=== PATIENT | male | born 1960 | race Caucasian/White ===

== ENCOUNTER 2017-12-02 17:27 | Inpatient (IN) | payer OTHER ==
[~2017-12-02 17:27] MED LIST: INSULIN HUMAN REGULAR 100 UNIT in SOD CHLORIDE 0.9% 99 ML IV; PHENYLEPHRINE IV; SOD CHLORIDE 0.9% IV
[2017-12-02] MEDS ORDERED: NACL 0.9% 3 ML SYG IV (20:00)
[2017-12-02] MEDS: INSULIN ASPART [NOVOLOG] 3 ML PEN SC (21:00)
[2017-12-02] MEDS ORDERED: GLUCOSE GEL 15 GRAM TUBE BUCCAL (23:00)
[2017-12-02] MEDS: HEPARIN 5,000 UNIT/0.5 ML VIAL SC (23:00)
[2017-12-02] MEDS ORDERED: GLUCAGON 1 MG INJ IM (23:00)
[2017-12-02] MEDS ORDERED: GLUCOSE GEL 15 GRAM TUBE PO ×2 (23:00)
[2017-12-02] MEDS ORDERED: DEXTROSE 50% 50 ML SYRINGE IV ×2 (23:00)
[2017-12-02] MEDS: ATORVASTATIN 80 MG TAB PO (23:07)
[2017-12-02] MEDS: GABAPENTIN 300 MG CAP PO (23:07)
[2017-12-03 05:52] LABS: ADD MAN DIFF? NO
[2017-12-03 06:01] LABS: WHITE BLOOD COUNT 6.1 10^3/ul (4.8-10.8)
[2017-12-03 06:01] LABS: BASOPHIL # 0.1 10^3/ul (0.0-0.1); BASOPHILS % 1.3 % (0.0-2.0); EOSINOPHILS # 0.2 10^3/ul (0.0-0.5); EOSINOPHILS % 2.8 % (0.0-7.0); HEMATOCRIT 31.4 % (42.0-52.0); HEMOGLOBIN 10.4 g/dl (14.0-18.0); LYMPHOCYTES # 1.5 10^3/ul (0.8-2.9); MEAN CORPUSCULAR HEMOGLOBIN 28.6 pg (29.0-33.0); MEAN CORPUSCULAR HGB CONC 33.1 g/dl (32.0-37.0); MEAN CORPUSCULAR VOLUME 86.3 fl (82.0-101.0); MEAN PLATELET VOLUME 12.9 fl (7.4-10.4); MONOCYTE # 0.5 10^3/ul (0.3-0.9); MONOCYTES % 7.8 % (0.0-11.0); NEUTROPHIL # 3.8 10^3/ul (1.6-7.5); NEUTROPHILS % 62.4 % (39.0-77.0); PLATELET COUNT 155 10^3/UL (140-415); RED BLOOD COUNT 3.64 10^6/ul (4.70-6.10); RED CELL DISTRIBUTION WIDTH 13.6 % (11.5-14.5)
[2017-12-03 06:57] LABS: ALANINE AMINOTRANSFERASE 43 IU/L (13-69); ALBUMIN 3.5 g/dl (3.3-4.9); ALKALINE PHOSPHATASE 93 IU/L (42-121); ANION GAP 15 (8-16); ASPARTATE AMINO TRANSFERASE 19 IU/L (15-46); BILIRUBIN,INDIRECT 0.4 mg/dl (0-1.1); BILIRUBIN,TOTAL 0.4 mg/dl (0.2-1.3); BLOOD UREA NITROGEN 31 mg/dl (7-20); CALCIUM 8.8 mg/dl (8.4-10.2); CARBON DIOXIDE 28 mmol/L (21-31); CHLORIDE 101 mmol/L (97-110); CREATININE 1.01 mg/dl (0.61-1.24); GLUCOSE 99 mg/dl (70-220); POTASSIUM 4.8 mmol/L (3.5-5.1); SODIUM 139 mmol/L (135-144); TOTAL PROTEIN 6.4 g/dl (6.1-8.1)
[2017-12-03] MEDS: INSULIN ASPART [NOVOLOG] 3 ML PEN SC ×4 (08:15→20:47)
[2017-12-03] MEDS: ASPIRIN 81 MG TAB PO (08:55)
[2017-12-03] MEDS: GABAPENTIN 300 MG CAP PO ×3 (08:55→20:46)
[2017-12-03] MEDS: BENAZEPRIL 5 MG TAB PO (08:56)
[2017-12-03] MEDS: FUROSEMIDE 40 MG TAB PO (08:56)
[2017-12-03] MEDS: HEPARIN 5,000 UNIT/0.5 ML VIAL SC ×2 (08:59→20:48)
[2017-12-03] MEDS: ATORVASTATIN 80 MG TAB PO (20:46)
[2017-12-04] MEDS: SOD CHLORIDE 0.9% 250 ML IV (03:18)
[2017-12-04] MEDS: MIDODRINE 5 MG TAB PO (03:30)
[2017-12-04] MEDS: INSULIN ASPART [NOVOLOG] 3 ML PEN SC ×4 (08:15→21:00)
[2017-12-04] MEDS: BENAZEPRIL 5 MG TAB PO (09:00)
[2017-12-04] MEDS: ASPIRIN 81 MG TAB PO (09:03)
[2017-12-04] MEDS: FUROSEMIDE 40 MG TAB PO (09:04)
[2017-12-04] MEDS: GABAPENTIN 300 MG CAP PO ×3 (09:05→20:54)
[2017-12-04] MEDS: HEPARIN 5,000 UNIT/0.5 ML VIAL SC ×2 (09:09→20:59)
[2017-12-04] MEDS: ATORVASTATIN 80 MG TAB PO (20:53)
[2017-12-05] MEDS: INSULIN ASPART [NOVOLOG] 3 ML PEN SC ×4 (08:02→21:00)
[2017-12-05] MEDS: GABAPENTIN 300 MG CAP PO ×3 (08:56→20:58)
[2017-12-05] MEDS: ASPIRIN 81 MG TAB PO (08:57)
[2017-12-05] MEDS: FUROSEMIDE 20 MG TAB PO (08:57)
[2017-12-05] MEDS: HEPARIN 5,000 UNIT/0.5 ML VIAL SC ×2 (09:00→21:00)
[2017-12-05] MEDS: BENAZEPRIL 5 MG TAB PO (09:00)
[2017-12-05 12:42] LABS: ADD MAN DIFF? NO
[2017-12-05 12:46] LABS: BASOPHIL # 0.1 10^3/ul (0.0-0.1); EOSINOPHILS # 0.2 10^3/ul (0.0-0.5); EOSINOPHILS % 3.5 % (0.0-7.0); HEMATOCRIT 35.6 % (42.0-52.0); HEMOGLOBIN 12.2 g/dl (14.0-18.0); LYMPHOCYTES # 1.4 10^3/ul (0.8-2.9); LYMPHOCYTES % 22.2 % (15.0-51.0); MEAN CORPUSCULAR HEMOGLOBIN 29.3 pg (29.0-33.0); MEAN CORPUSCULAR HGB CONC 34.3 g/dl (32.0-37.0); MEAN CORPUSCULAR VOLUME 85.4 fl (82.0-101.0); MONOCYTE # 0.6 10^3/ul (0.3-0.9); MONOCYTES % 9.9 % (0.0-11.0); NEUTROPHIL # 3.8 10^3/ul (1.6-7.5); NEUTROPHILS % 63.1 % (39.0-77.0); PLATELET COUNT 190 10^3/UL (140-415); RED BLOOD COUNT 4.17 10^6/ul (4.70-6.10); RED CELL DISTRIBUTION WIDTH 13.7 % (11.5-14.5)
[2017-12-05 12:46] LABS: WHITE BLOOD COUNT 6.1 10^3/ul (4.8-10.8)
[2017-12-05 13:08] LABS: ANION GAP 14 (8-16); BLOOD UREA NITROGEN 37 mg/dl (7-20); CALCIUM 9.2 mg/dl (8.4-10.2); CARBON DIOXIDE 30 mmol/L (21-31); CHLORIDE 101 mmol/L (97-110); CREATININE 1.14 mg/dl (0.61-1.24); GLUCOSE 107 mg/dl (70-220); POTASSIUM 4.7 mmol/L (3.5-5.1); SODIUM 140 mmol/L (135-144)
[2017-12-05] MEDS: ATORVASTATIN 80 MG TAB PO (20:58)
[2017-12-06] MEDS: INSULIN ASPART [NOVOLOG] 3 ML PEN SC ×4 (08:15→20:11)
[2017-12-06] MEDS: FUROSEMIDE 20 MG TAB PO (08:20)
[2017-12-06] MEDS: GABAPENTIN 300 MG CAP PO ×3 (08:20→20:10)
[2017-12-06] MEDS: ASPIRIN 81 MG TAB PO (08:20)
[2017-12-06] MEDS: BENAZEPRIL 5 MG TAB PO (08:28)
[2017-12-06] MEDS: HEPARIN 5,000 UNIT/0.5 ML VIAL SC ×2 (12:17→21:00)
[2017-12-06 14:35] LABS: ADD MAN DIFF? NO
[2017-12-06 14:38] LABS: WHITE BLOOD COUNT 6.9 10^3/ul (4.8-10.8)
[2017-12-06 14:38] LABS: BASOPHIL # 0.1 10^3/ul (0.0-0.1); BASOPHILS % 0.9 % (0.0-2.0); EOSINOPHILS # 0.3 10^3/ul (0.0-0.5); EOSINOPHILS % 4.2 % (0.0-7.0); HEMATOCRIT 36.4 % (42.0-52.0); HEMOGLOBIN 12.5 g/dl (14.0-18.0); LYMPHOCYTES # 1.4 10^3/ul (0.8-2.9); LYMPHOCYTES % 20.3 % (15.0-51.0); MEAN CORPUSCULAR HEMOGLOBIN 29.3 pg (29.0-33.0); MEAN CORPUSCULAR HGB CONC 34.3 g/dl (32.0-37.0); MEAN CORPUSCULAR VOLUME 85.2 fl (82.0-101.0); MEAN PLATELET VOLUME 12.6 fl (7.4-10.4); MONOCYTE # 0.6 10^3/ul (0.3-0.9); MONOCYTES % 8.3 % (0.0-11.0); NEUTROPHIL # 4.6 10^3/ul (1.6-7.5); PLATELET COUNT 193 10^3/UL (140-415); RED BLOOD COUNT 4.27 10^6/ul (4.70-6.10); RED CELL DISTRIBUTION WIDTH 13.7 % (11.5-14.5)
[2017-12-06 14:57] LABS: ALANINE AMINOTRANSFERASE 35 IU/L (13-69); ALBUMIN 3.8 g/dl (3.3-4.9); ALBUMIN/GLOBULIN RATIO 1.26; ALKALINE PHOSPHATASE 131 IU/L (42-121); ANION GAP 15 (8-16); ASPARTATE AMINO TRANSFERASE 13 IU/L (15-46); BILIRUBIN,INDIRECT 0.1 mg/dl (0-1.1); BILIRUBIN,TOTAL 0.1 mg/dl (0.2-1.3); BLOOD UREA NITROGEN 42 mg/dl (7-20); CALCIUM 8.8 mg/dl (8.4-10.2); CARBON DIOXIDE 27 mmol/L (21-31); CHLORIDE 99 mmol/L (97-110); CREATININE 1.13 mg/dl (0.61-1.24); GLUCOSE 121 mg/dl (70-220); POTASSIUM 4.2 mmol/L (3.5-5.1); SODIUM 137 mmol/L (135-144); TOTAL PROTEIN 6.8 g/dl (6.1-8.1)
[2017-12-06] MEDS: ATORVASTATIN 80 MG TAB PO (20:10)
[2017-12-07] MEDS: INSULIN ASPART [NOVOLOG] 3 ML PEN SC ×4 (08:15→20:33)
[2017-12-07] MEDS: HEPARIN 5,000 UNIT/0.5 ML VIAL SC ×2 (09:00→20:31)
[2017-12-07] MEDS: BENAZEPRIL 5 MG TAB PO (09:00)
[2017-12-07] MEDS: ASPIRIN 81 MG TAB PO (10:37)
[2017-12-07] MEDS: GABAPENTIN 300 MG CAP PO ×3 (10:37→20:32)
[2017-12-07] MEDS: FUROSEMIDE 20 MG TAB PO (10:38)
[2017-12-07] MEDS: ATORVASTATIN 80 MG TAB PO (20:32)
[2017-12-08] MEDS: INSULIN ASPART [NOVOLOG] 3 ML PEN SC ×4 (07:54→20:34)
[2017-12-08] MEDS: BENAZEPRIL 5 MG TAB PO (08:27)
[2017-12-08] MEDS: GABAPENTIN 300 MG CAP PO ×3 (08:27→20:31)
[2017-12-08] MEDS: ASPIRIN 81 MG TAB PO (08:28)
[2017-12-08] MEDS: FUROSEMIDE 20 MG TAB PO (08:29)
[2017-12-08] MEDS: HEPARIN 5,000 UNIT/0.5 ML VIAL SC ×2 (09:00→20:34)
[2017-12-08 19:29] LABS: ADD MAN DIFF? NO
[2017-12-08 19:32] LABS: BASOPHIL # 0.1 10^3/ul (0.0-0.1); BASOPHILS % 1.2 % (0.0-2.0); EOSINOPHILS # 0.3 10^3/ul (0.0-0.5); EOSINOPHILS % 3.7 % (0.0-7.0); HEMATOCRIT 39.2 % (42.0-52.0); HEMOGLOBIN 13.3 g/dl (14.0-18.0); LYMPHOCYTES # 1.4 10^3/ul (0.8-2.9); LYMPHOCYTES % 19.3 % (15.0-51.0); MEAN CORPUSCULAR HEMOGLOBIN 29.1 pg (29.0-33.0); MEAN CORPUSCULAR HGB CONC 33.9 g/dl (32.0-37.0); MEAN CORPUSCULAR VOLUME 85.8 fl (82.0-101.0); MEAN PLATELET VOLUME 12.3 fl (7.4-10.4); MONOCYTE # 0.5 10^3/ul (0.3-0.9); MONOCYTES % 7.2 % (0.0-11.0); NEUTROPHILS % 68.3 % (39.0-77.0); PLATELET COUNT 217 10^3/UL (140-415); RED BLOOD COUNT 4.57 10^6/ul (4.70-6.10); RED CELL DISTRIBUTION WIDTH 13.8 % (11.5-14.5)
[2017-12-08 19:32] LABS: WHITE BLOOD COUNT 7.3 10^3/ul (4.8-10.8)
[2017-12-08 20:25] LABS: ANION GAP 17 (8-16); BLOOD UREA NITROGEN 41 mg/dl (7-20); CALCIUM 9.3 mg/dl (8.4-10.2); CARBON DIOXIDE 25 mmol/L (21-31); CHLORIDE 101 mmol/L (97-110); GLUCOSE 119 mg/dl (70-220); MAGNESIUM 1.9 mg/dl (1.7-2.5); PHOSPHORUS 4.2 mg/dl (2.5-4.9); POTASSIUM 4.3 mmol/L (3.5-5.1); SODIUM 139 mmol/L (135-144)
[2017-12-08] MEDS: ATORVASTATIN 80 MG TAB PO (20:31)
[2017-12-09] MEDS: FUROSEMIDE 20 MG TAB PO (08:00)
[2017-12-09] MEDS: GABAPENTIN 300 MG CAP PO ×3 (08:00→21:02)
[2017-12-09] MEDS: ASPIRIN 81 MG TAB PO (08:00)
[2017-12-09] MEDS: INSULIN ASPART [NOVOLOG] 3 ML PEN SC ×4 (08:15→21:00)
[2017-12-09] MEDS: BENAZEPRIL 5 MG TAB PO (09:00)
[2017-12-09] MEDS: HEPARIN 5,000 UNIT/0.5 ML VIAL SC ×2 (09:00→21:09)
[2017-12-09] MEDS: ATORVASTATIN 80 MG TAB PO (21:02)
[2017-12-10] MEDS: BENAZEPRIL 5 MG TAB PO (08:16)
[2017-12-10] MEDS: ASPIRIN 81 MG TAB PO (08:21)
[2017-12-10] MEDS: GABAPENTIN 300 MG CAP PO ×3 (08:21→20:39)
[2017-12-10] MEDS: HEPARIN 5,000 UNIT/0.5 ML VIAL SC ×2 (08:21→20:44)
[2017-12-10] MEDS: FUROSEMIDE 20 MG TAB PO (08:21)
[2017-12-10] MEDS: INSULIN ASPART [NOVOLOG] 3 ML PEN SC ×4 (08:25→20:45)
[2017-12-10] MEDS: ATORVASTATIN 80 MG TAB PO (20:39)
[2017-12-11] MEDS: ASPIRIN 81 MG TAB PO (08:35)
[2017-12-11] MEDS: GABAPENTIN 300 MG CAP PO ×3 (08:35→20:42)
[2017-12-11] MEDS: FUROSEMIDE 20 MG TAB PO (08:38)
[2017-12-11] MEDS: INSULIN ASPART [NOVOLOG] 3 ML PEN SC ×4 (08:54→20:55)
[2017-12-11] MEDS: BENAZEPRIL 5 MG TAB PO (08:56)
[2017-12-11] MEDS: HEPARIN 5,000 UNIT/0.5 ML VIAL SC ×2 (08:56→20:50)
[2017-12-11] MEDS: ATORVASTATIN 80 MG TAB PO (20:43)
[2017-12-12] MEDS: INSULIN ASPART [NOVOLOG] 3 ML PEN SC ×4 (07:55→21:00)
[2017-12-12] MEDS: ASPIRIN 81 MG TAB PO (08:44)
[2017-12-12] MEDS: FUROSEMIDE 20 MG TAB PO (08:45)
[2017-12-12] MEDS: BENAZEPRIL 5 MG TAB PO (08:45)
[2017-12-12] MEDS: GABAPENTIN 300 MG CAP PO ×3 (08:45→21:12)
[2017-12-12] MEDS: HEPARIN 5,000 UNIT/0.5 ML VIAL SC ×2 (08:47→21:24)
[2017-12-12] MEDS: ACETAMINOPHEN 325 MG TAB PO ×2 (16:43→21:13)
[2017-12-12] MEDS: ATORVASTATIN 80 MG TAB PO (21:13)
[2017-12-13] MEDS: ACETAMINOPHEN 325 MG TAB PO (00:56)
[2017-12-13] MEDS: INSULIN ASPART [NOVOLOG] 3 ML PEN SC ×4 (07:55→20:56)
[2017-12-13] MEDS: GABAPENTIN 300 MG CAP PO ×3 (08:36→20:56)
[2017-12-13] MEDS: FUROSEMIDE 20 MG TAB PO (08:37)
[2017-12-13] MEDS: ASPIRIN 81 MG TAB PO (08:38)
[2017-12-13] MEDS: BENAZEPRIL 5 MG TAB PO (08:38)
[2017-12-13] MEDS: HEPARIN 5,000 UNIT/0.5 ML VIAL SC ×2 (08:48→21:07)
[2017-12-13] MEDS: ATORVASTATIN 80 MG TAB PO (20:56)
[2017-12-14] MEDS: INSULIN ASPART [NOVOLOG] 3 ML PEN SC ×4 (07:55→21:00)
[2017-12-14] MEDS: GABAPENTIN 300 MG CAP PO ×3 (08:49→21:30)
[2017-12-14] MEDS: BENAZEPRIL 5 MG TAB PO (08:49)
[2017-12-14] MEDS: FUROSEMIDE 20 MG TAB PO (08:49)
[2017-12-14] MEDS: ASPIRIN 81 MG TAB PO (08:50)
[2017-12-14] MEDS: HEPARIN 5,000 UNIT/0.5 ML VIAL SC ×2 (08:58→21:45)
[2017-12-14 14:58] LABS: ADD MAN DIFF? NO
[2017-12-14 14:59] LABS: BASOPHILS % 0.6 % (0.0-2.0); EOSINOPHILS # 0.3 10^3/ul (0.0-0.5); EOSINOPHILS % 4.8 % (0.0-7.0); HEMATOCRIT 37.7 % (42.0-52.0); HEMOGLOBIN 12.8 g/dl (14.0-18.0); LYMPHOCYTES # 1.3 10^3/ul (0.8-2.9); LYMPHOCYTES % 20.5 % (15.0-51.0); MEAN CORPUSCULAR HEMOGLOBIN 29.5 pg (29.0-33.0); MEAN CORPUSCULAR VOLUME 86.9 fl (82.0-101.0); MEAN PLATELET VOLUME 12.8 fl (7.4-10.4); MONOCYTE # 0.5 10^3/ul (0.3-0.9); MONOCYTES % 8.4 % (0.0-11.0); NEUTROPHILS % 65.1 % (39.0-77.0); PLATELET COUNT 172 10^3/UL (140-415); RED BLOOD COUNT 4.34 10^6/ul (4.70-6.10)
[2017-12-14 14:59] LABS: WHITE BLOOD COUNT 6.2 10^3/ul (4.8-10.8)
[2017-12-14 15:32] LABS: ANION GAP 16 (8-16); BLOOD UREA NITROGEN 41 mg/dl (7-20); CALCIUM 9.4 mg/dl (8.4-10.2); CARBON DIOXIDE 29 mmol/L (21-31); CHLORIDE 103 mmol/L (97-110); CREATININE 1.17 mg/dl (0.61-1.24); GLUCOSE 137 mg/dl (70-220); MAGNESIUM 1.7 mg/dl (1.7-2.5); PHOSPHORUS 5.1 mg/dl (2.5-4.9); POTASSIUM 4.8 mmol/L (3.5-5.1); SODIUM 143 mmol/L (135-144)
[2017-12-14] MEDS: ATORVASTATIN 80 MG TAB PO (21:30)
[2017-12-15] MEDS ORDERED: GELATIN SIZE 100 SPONGE (06:35)
[2017-12-15] MEDS ORDERED: THROMBIN 5000 UNIT VIAL (06:36)
[2017-12-15] MEDS ORDERED: MILRINONE LACTATE 20 MG/D5W 100 ML BAG (07:00)
[2017-12-15] MEDS ORDERED: NITROGLYCERIN 50 MG/D5W 250 ML BTL (07:00)
[2017-12-15] MEDS ORDERED: TRANEXAMIC ACID 1,000 MG/10 ML VIAL (07:00)
[2017-12-15] MEDS ORDERED: DOPamine-D5W 1.6 MG/ML 250 ML (07:00)
[2017-12-15] MEDS ORDERED: MIDAZOLAM 5 ML ×2 (07:35→14:34)
[2017-12-15] MEDS ORDERED: ALBUMIN HUMAN 25% 200 ML (07:40)
[2017-12-15] MEDS ORDERED: HEPARIN 1000 UNITS/ML 10 ML INJ ×2 (07:41→09:30)
[2017-12-15] MEDS ORDERED: PHENYLephrine 10 MG INJ (07:41)
[2017-12-15] MEDS ORDERED: MANNITOL 20% 250 ML IV (07:42)
[2017-12-15] MEDS ORDERED: PHENYLephrine (100 MCG/ML) 5ML SYG ×2 (07:42→14:10)
[2017-12-15] MEDS ORDERED: POTASSIUM CHLORIDE 40 MEQ INJ (07:42)
[2017-12-15] MEDS ORDERED: LIDOCAINE 100 MG SYRINGE (07:43)
[2017-12-15] MEDS ORDERED: MAGNESIUM SULFATE (MG) 50% 10 ML INJ (07:43)
[2017-12-15] MEDS ORDERED: CA CHLORIDE 10% 10 ML SYRINGE (07:44)
[2017-12-15] MEDS ORDERED: NA BICARBONATE 8.4% 50 ML SYG (07:47)
[2017-12-15] MEDS: INSULIN ASPART [NOVOLOG] 3 ML PEN SC ×3 (07:55→17:35)
[2017-12-15] MEDS ORDERED: ALBUMIN HUMAN 5% 0 ML (08:37)
[2017-12-15] MEDS ORDERED: CEFAZOLIN 1 GM INJ ×2 (08:44→12:14)
[2017-12-15] MEDS ORDERED: EPINEPHrine 4 MG in DEXTROSE 5% 246 ML IV ×2 (09:00→18:00)
[2017-12-15] MEDS: GABAPENTIN 300 MG CAP PO ×2 (09:00→13:00)
[2017-12-15] MEDS ORDERED: POTASSIUM CHLORIDE 50 ML IVPB (09:00)
[2017-12-15] MEDS: BENAZEPRIL 5 MG TAB PO (09:00)
[2017-12-15] MEDS: FUROSEMIDE 20 MG TAB PO (09:00)
[2017-12-15] MEDS ORDERED: morphine 2 MG INJ IV (09:00)
[2017-12-15] MEDS: HEPARIN 5,000 UNIT/0.5 ML VIAL SC (09:00)
[2017-12-15] MEDS: HEPARIN 1000 UNITS/ML 10 ML INJ (09:00)
[2017-12-15] MEDS ORDERED: ALBUMIN HUMAN 5% 250 ML IV (09:00)
[2017-12-15] MEDS: ASPIRIN 81 MG TAB PO (09:00)
[2017-12-15] MEDS ORDERED: FUROSEMIDE 20 MG INJ (10:11)
[2017-12-15] MEDS: PAPAVERINE 60 MG INJ (10:18)
[2017-12-15] MEDS: VANCOMYCIN 1 GM INJ (10:21)
[2017-12-15 12:17] LABS: IMMEDIATE SPIN CROSSMATCH 1
[2017-12-15] MEDS ORDERED: ROCURONIUM 50 MG INJ (12:20)
[2017-12-15] MEDS ORDERED: ETOMIDATE 20 MG INJ (12:20)
[2017-12-15] MEDS ORDERED: LIDOCAINE 2% (SDV) 5 ML INJ (12:20)
[2017-12-15 12:22] LABS: TYPE AND SCREEN 1
[2017-12-15] MEDS ORDERED: PROTAMINE 250 MG INJ (12:30)
[2017-12-15 14:25] LABS: IMMEDIATE SPIN CROSSMATCH 1
[2017-12-15] MEDS: DESMOPRESSIN 18 MCG in SOD CHLORIDE 0.9% 50 ML IV (14:30)
[2017-12-15 14:45] LABS: IMMEDIATE SPIN CROSSMATCH 1 6
[2017-12-15] MEDS: PHENYLephrine 20MG IN 250 ML 250 ML IV (16:00)
[2017-12-15] MEDS: NITROGLYCERIN 50 MG/D5W (PMX) 250 ML IV (16:00)
[2017-12-15] MEDS: SOD CHLORIDE 0.9% IV (16:00)
[2017-12-15] MEDS: PHENYLEPHRINE IV (16:00)
[2017-12-15] MEDS: INSULIN HUMAN REGULAR 100 UNIT in SOD CHLORIDE 0.9% 99 ML IV ×2 (16:00→20:51)
[2017-12-15] MEDS: morphine 2 MG INJ IV ×2 (16:15→18:15)
[2017-12-15 16:27] LABS: ADD MAN DIFF? NO
[2017-12-15 16:32] LABS: WHITE BLOOD COUNT 10.2 10^3/ul (4.8-10.8)
[2017-12-15 16:32] LABS: BASOPHILS % 0.1 % (0.0-2.0); EOSINOPHILS # 0.1 10^3/ul (0.0-0.5); EOSINOPHILS % 0.7 % (0.0-7.0); HEMATOCRIT 31.4 % (42.0-52.0); LYMPHOCYTES # 1.2 10^3/ul (0.8-2.9); LYMPHOCYTES % 11.6 % (15.0-51.0); MEAN CORPUSCULAR HEMOGLOBIN 30.3 pg (29.0-33.0); MEAN CORPUSCULAR VOLUME 86.5 fl (82.0-101.0); MEAN PLATELET VOLUME 10.9 fl (7.4-10.4); MONOCYTE # 0.4 10^3/ul (0.3-0.9); MONOCYTES % 3.6 % (0.0-11.0); NEUTROPHIL # 8.4 10^3/ul (1.6-7.5); NEUTROPHILS % 83.1 % (39.0-77.0); PLATELET COUNT 119 10^3/UL (140-415); RED BLOOD COUNT 3.63 10^6/ul (4.70-6.10); RED CELL DISTRIBUTION WIDTH 14.6 % (11.5-14.5)
[2017-12-15 16:35] LABS: Arterial Base Excess -0.5 mmol/L (-3.0-3); Arterial Blood Gas Oxygen Sat 98.5 mmHG (95.0-98.0); Arterial COHb 0.3 % (0.0-3.0); Arterial Fraction of Oxyhgb 97.7 % (93.0-99.0); Arterial HCO3 25.1 mmol/L (22.0-26.0); Arterial MetHb 0.5 % (0.0-1.5); Arterial pCO2 45.3 mmhg (35-45); MODE VENT - AC; Site A-Line
[2017-12-15 16:40] LABS: MODE VENT - AC; MetHgb Mixed Venous 0.5 %; Mixed Venous COHb 0.1 %; Mixed Venous Fraction OxyHgb 74.2 %; Mixed Venous Oxygen Sat 74.6 mmHG (65.0-75.0); Mixed Venous Total Hemglobin 12.1 g/dl; Sample Type BLMV; Site A-Line
[2017-12-15 16:45] LABS: INR 1.27; PARTIAL THROMBOPLASTIN TIME 32.6 Sec (25.0-35.0); PROTIME 16.1 Sec (11.9-14.9); PT RATIO 1.3
[2017-12-15] MEDS ORDERED: DOPamine-D5W 1.6 MG/ML 250 ML IV (17:00)
[2017-12-15] MEDS: POTASSIUM CHLORIDE 40 MEQ, CALCIUM CHLORIDE 10% 1 GM in DEXTROSE 5%-0.225% NACL 1,000 ML IV ×2 (17:00→19:49)
[2017-12-15] MEDS: ONDANSETRON 4 MG INJ IV ×2 (17:00→23:25)
[2017-12-15] MEDS: EPINEPHrine 4 MG in DEXTROSE 5% 246 ML IV (17:00)
[2017-12-15 17:32] LABS: ANION GAP 17 (8-16); BLOOD UREA NITROGEN 34 mg/dl (7-20); CALCIUM 9.5 mg/dl (8.4-10.2); CARBON DIOXIDE 28 mmol/L (21-31); CHLORIDE 107 mmol/L (97-110); CREATININE 0.92 mg/dl (0.61-1.24); GLUCOSE 88 mg/dl (70-220); MAGNESIUM 1.8 mg/dl (1.7-2.5); POTASSIUM 3.7 mmol/L (3.5-5.1); SODIUM 148 mmol/L (135-144)
[2017-12-15] MEDS: MAGNESIUM SULFATE 1 GM/D5W 100 ML IVPB ×2 (19:45→21:17)
[2017-12-15] MEDS ORDERED: DEXTROSE 50% 50 ML SYRINGE IV ×2 (20:00)
[2017-12-15] MEDS: ACCU-CHEK XX ×4 (20:10→23:24)
[2017-12-15] MEDS: FUROSEMIDE 20 MG INJ IV (20:30)
[2017-12-15] MEDS ORDERED: PHENYLephrine 20MG IN 250 ML 250 ML IV (20:30)
[2017-12-15] MEDS: ASPIRIN 300 MG SUPP PR (21:28)
[2017-12-15 22:56] LABS: AADO2 Arterial 82.7 mmHg (7.0-24.0); Arterial Base Excess -0.9 mmol/L (-3.0-3); Arterial Blood Gas Oxygen Sat 98.1 mmHG (95.0-98.0); Arterial COHb 0.3 % (0.0-3.0); Arterial Fraction of Oxyhgb 97.5 % (93.0-99.0); Arterial HCO3 25.6 mmol/L (22.0-26.0); Arterial MetHb 0.3 % (0.0-1.5); Arterial Total Hemglobin 11.8 g/dl (12.0-18.0); Arterial pCO2 50.4 mmhg (35-45); Blood Gas PS 10; MODE VENT - CPAP; Site A-Line
[2017-12-15] MEDS ORDERED: LORAZEPAM 2 MG INJ (23:16)
[2017-12-15 23:19] LABS: POTASSIUM 3.5 mmol/L (3.5-5.1)
[2017-12-15] MEDS: LORAZEPAM 2 MG INJ IV (23:26)
[2017-12-16] MEDS: POTASSIUM CHLORIDE 30 MEQ in DEXTROSE 5% 250 ML IV (00:25)
[2017-12-16] MEDS: ACCU-CHEK XX ×24 (00:27→23:11)
[2017-12-16] MEDS ORDERED: LORAZEPAM 2 MG INJ (02:07)
[2017-12-16] MEDS: LORAZEPAM 2 MG INJ IV ×2 (02:28→08:51)
[2017-12-16] MEDS: PHENYLephrine 20MG IN 250 ML 250 ML IV ×2 (03:26→08:21)
[2017-12-16 05:06] LABS: AADO2 Arterial 27.9 mmHg (7.0-24.0); Arterial Base Excess -2.2 mmol/L (-3.0-3); Arterial Blood Gas Oxygen Sat 98.7 mmHG (95.0-98.0); Arterial COHb 0.7 % (0.0-3.0); Arterial Fraction of Oxyhgb 97.9 % (93.0-99.0); Arterial MetHb 0.1 % (0.0-1.5); Arterial Total Hemglobin 10.8 g/dl (12.0-18.0); Arterial pCO2 35.6 mmhg (35-45); Blood Gas PS 5; MODE CPAP - PS; Site A-Line
[2017-12-16 05:25] LABS: HEMATOCRIT 28.8 % (42.0-52.0); HEMOGLOBIN 10.1 g/dl (14.0-18.0); MEAN CORPUSCULAR HEMOGLOBIN 30.3 pg (29.0-33.0); MEAN CORPUSCULAR HGB CONC 35.1 g/dl (32.0-37.0); MEAN CORPUSCULAR VOLUME 86.5 fl (82.0-101.0); MEAN PLATELET VOLUME 12.5 fl (7.4-10.4); PLATELET COUNT 145 10^3/UL (140-415); POSITIVE DIFF @See below; RED BLOOD COUNT 3.33 10^6/ul (4.70-6.10); RED CELL DISTRIBUTION WIDTH 15.3 % (11.5-14.5)
[2017-12-16 05:25] LABS: WHITE BLOOD COUNT 14.2 10^3/ul (4.8-10.8)
[2017-12-16] MEDS: ONDANSETRON 4 MG INJ IV (05:38)
[2017-12-16 05:49] LABS: INR 1.09; PROTIME 14.3 Sec (11.9-14.9); PT RATIO 1.1
[2017-12-16 05:50] LABS: PARTIAL THROMBOPLASTIN TIME 34.3 Sec (25.0-35.0)
[2017-12-16 05:55] LABS: ANION GAP 15 (8-16); BLOOD UREA NITROGEN 34 mg/dl (7-20); CALCIUM 9.3 mg/dl (8.4-10.2); CARBON DIOXIDE 29 mmol/L (21-31); CHLORIDE 108 mmol/L (97-110); CREATININE 1.17 mg/dl (0.61-1.24); GLUCOSE 112 mg/dl (70-220); MAGNESIUM 2.1 mg/dl (1.7-2.5); POTASSIUM 4.7 mmol/L (3.5-5.1); SODIUM 147 mmol/L (135-144)
[2017-12-16 06:24] LABS: ADD MAN DIFF? YES
[2017-12-16 07:24] LABS: ANISOCYTOSIS 2+ (0-0); BAND NEUTROPHILS #M 1.9 10^3/ul (0.0-0.6); BAND NEUTROPHILS % (M) 14 % (0-4); EOSINOPHILS % (M) 2 % (0-7); GIANT THROMBO% (M) 2 % (0-0); LYMPHOCYTES #M 0.7 10^3/ul (0.8-2.9); LYMPHOCYTES % (M) 5 % (15-51); MICROCYTOSIS 2+ (0-0); MONOCYTE #M 0.8 10^3/ul (0.3-0.9); MONOCYTES % (M) 6 % (0-11); PLATELET ESTIMATE NORMAL; POLYCHROMASIA 1+ (0-0); REACTIVE LYMPHOCYTES #M 0.1 10^3/ul (0.0-0.0); REACTIVE LYMPHOCYTES% (M) 1 % (0-0); SEG NEUT #M 10.5 10^3/ul (1.6-7.5); SEGMENTED NEUTROPHILS (M) % 72 % (39-77); SMUDGE%M 1 % (0-0)
[2017-12-16] MEDS: ASPIRIN 81 MG TAB PO (08:51)
[2017-12-16] MEDS: morphine 2 MG INJ IV ×6 (09:09→23:33)
[2017-12-16] MEDS: FUROSEMIDE 20 MG INJ IV (14:03)
[2017-12-16] MEDS: PHENYLephrine 40 MG in DEXTROSE 5% 496 ML IV (16:04)
[2017-12-16 16:06] LABS: HEMATOCRIT 22.4 % (42.0-52.0)
[2017-12-16] MEDS: ATORVASTATIN 40 MG TAB PO (20:45)
[2017-12-17] MEDS: ACCU-CHEK XX ×9 (01:00→08:55)
[2017-12-17] MEDS: INSULIN HUMAN REGULAR 100 UNIT in SOD CHLORIDE 0.9% 99 ML IV ×2 (01:05→02:11)
[2017-12-17] MEDS: morphine 2 MG INJ IV ×7 (03:00→23:17)
[2017-12-17 05:16] LABS: ADD MAN DIFF? NO
[2017-12-17 05:20] LABS: ABNORMAL IP MESSAGE 1; BASOPHILS % 0.3 % (0.0-2.0); EOSINOPHILS # 0.2 10^3/ul (0.0-0.5); EOSINOPHILS % 1.6 % (0.0-7.0); HEMATOCRIT 25.4 % (42.0-52.0); HEMOGLOBIN 8.6 g/dl (14.0-18.0); LYMPHOCYTES # 0.8 10^3/ul (0.8-2.9); LYMPHOCYTES % 6.4 % (15.0-51.0); MEAN CORPUSCULAR HEMOGLOBIN 29.8 pg (29.0-33.0); MEAN CORPUSCULAR HGB CONC 33.9 g/dl (32.0-37.0); MEAN CORPUSCULAR VOLUME 87.9 fl (82.0-101.0); MONOCYTE # 0.8 10^3/ul (0.3-0.9); MONOCYTES % 6.5 % (0.0-11.0); NEUTROPHIL # 10.1 10^3/ul (1.6-7.5); NEUTROPHILS % 84.4 % (39.0-77.0); PLATELET COUNT 79 10^3/UL (140-415); POSITIVE DIFF @See below; RED BLOOD COUNT 2.89 10^6/ul (4.70-6.10); RED CELL DISTRIBUTION WIDTH 15.2 % (11.5-14.5)
[2017-12-17 05:30] LABS: MAGNESIUM 1.8 mg/dl (1.7-2.5)
[2017-12-17 05:59] LABS: ANION GAP 13 (8-16); BLOOD UREA NITROGEN 31 mg/dl (7-20); CALCIUM 8.9 mg/dl (8.4-10.2); CARBON DIOXIDE 31 mmol/L (21-31); CHLORIDE 102 mmol/L (97-110); CREATININE 0.94 mg/dl (0.61-1.24); GLUCOSE 104 mg/dl (70-220); POTASSIUM 4.3 mmol/L (3.5-5.1); SODIUM 142 mmol/L (135-144)
[2017-12-17] MEDS: MAGNESIUM SULFATE 1 GM/D5W 100 ML IVPB (06:44)
[2017-12-17] MEDS: ASPIRIN 81 MG TAB PO (08:31)
[2017-12-17] MEDS: POTASSIUM CHLORIDE 10 MEQ in SOD CHLORIDE 0.9% 50 ML IV (08:55)
[2017-12-17] MEDS: INSULIN ASPART [NOVOLOG] 3 ML PEN SC ×3 (11:26→21:00)
[2017-12-17] MEDS: INSULIN GLARGINE [LANtus] 3 ML PEN SC ×2 (11:26→14:30)
[2017-12-17] MEDS: MAGNESIUM SULFATE 2 GM/50 ML 50 ML IVPB (13:32)
[2017-12-17] MEDS: ATORVASTATIN 40 MG TAB PO (21:17)
[2017-12-18 05:39] LABS: ADD MAN DIFF? NO
[2017-12-18 05:46] LABS: ABNORMAL IP MESSAGE 1; BASOPHILS % 0.4 % (0.0-2.0); EOSINOPHILS # 0.2 10^3/ul (0.0-0.5); EOSINOPHILS % 2.5 % (0.0-7.0); HEMOGLOBIN 7.8 g/dl (14.0-18.0); LYMPHOCYTES # 0.9 10^3/ul (0.8-2.9); LYMPHOCYTES % 10.9 % (15.0-51.0); MEAN CORPUSCULAR HEMOGLOBIN 29.7 pg (29.0-33.0); MEAN CORPUSCULAR HGB CONC 33.9 g/dl (32.0-37.0); MEAN CORPUSCULAR VOLUME 87.5 fl (82.0-101.0); MEAN PLATELET VOLUME 13.9 fl (7.4-10.4); MONOCYTE # 0.6 10^3/ul (0.3-0.9); MONOCYTES % 7.5 % (0.0-11.0); NEUTROPHIL # 6.6 10^3/ul (1.6-7.5); NEUTROPHILS % 78.3 % (39.0-77.0); PLATELET COUNT 68 10^3/UL (140-415); POSITIVE DIFF @See below; RED BLOOD COUNT 2.63 10^6/ul (4.70-6.10); RED CELL DISTRIBUTION WIDTH 14.6 % (11.5-14.5)
[2017-12-18 05:46] LABS: WHITE BLOOD COUNT 8.4 10^3/ul (4.8-10.8)
[2017-12-18] MEDS: morphine 2 MG INJ IV ×7 (06:03→23:11)
[2017-12-18 06:11] LABS: ANION GAP 13 (8-16); BLOOD UREA NITROGEN 29 mg/dl (7-20); CALCIUM 8.5 mg/dl (8.4-10.2); CARBON DIOXIDE 30 mmol/L (21-31); CHLORIDE 98 mmol/L (97-110); CREATININE 0.98 mg/dl (0.61-1.24); GLUCOSE 79 mg/dl (70-220); POTASSIUM 4.4 mmol/L (3.5-5.1); SODIUM 137 mmol/L (135-144)
[2017-12-18 07:12] LABS: MAGNESIUM 2.4 mg/dl (1.7-2.5)
[2017-12-18] MEDS: INSULIN ASPART [NOVOLOG] 3 ML PEN SC ×5 (07:35→21:39)
[2017-12-18] MEDS: INSULIN GLARGINE [LANtus] 3 ML PEN SC (08:03)
[2017-12-18] MEDS: ASPIRIN 81 MG TAB PO (09:00)
[2017-12-18] MEDS: ONDANSETRON 4 MG INJ IV ×2 (12:17→21:58)
[2017-12-18 13:30] LABS: ADD MAN DIFF? NO
[2017-12-18 13:33] LABS: ABNORMAL IP MESSAGE 1; BASOPHILS % 0.4 % (0.0-2.0); EOSINOPHILS # 0.2 10^3/ul (0.0-0.5); EOSINOPHILS % 2.2 % (0.0-7.0); HEMATOCRIT 23.1 % (42.0-52.0); HEMOGLOBIN 7.9 g/dl (14.0-18.0); LYMPHOCYTES # 0.8 10^3/ul (0.8-2.9); LYMPHOCYTES % 11.7 % (15.0-51.0); MEAN CORPUSCULAR HEMOGLOBIN 29.9 pg (29.0-33.0); MEAN CORPUSCULAR HGB CONC 34.2 g/dl (32.0-37.0); MEAN CORPUSCULAR VOLUME 87.5 fl (82.0-101.0); MONOCYTE # 0.5 10^3/ul (0.3-0.9); MONOCYTES % 6.5 % (0.0-11.0); NEUTROPHIL # 5.7 10^3/ul (1.6-7.5); NEUTROPHILS % 78.6 % (39.0-77.0); PLATELET COUNT 75 10^3/UL (140-415); POSITIVE DIFF @See below; RED BLOOD COUNT 2.64 10^6/ul (4.70-6.10); RED CELL DISTRIBUTION WIDTH 14.4 % (11.5-14.5)
[2017-12-18 13:33] LABS: WHITE BLOOD COUNT 7.2 10^3/ul (4.8-10.8)
[2017-12-18] MEDS ORDERED: HYDROCODONE/APAP (5/325) TAB PO ×2 (17:00)
[2017-12-18] MEDS: ATORVASTATIN 40 MG TAB PO (21:37)
[2017-12-19] MEDS: morphine 2 MG INJ IV ×2 (02:32→05:35)
[2017-12-19] MEDS ORDERED: morphine 2 MG INJ IV (05:06)
[2017-12-19] MEDS: INSULIN ASPART [NOVOLOG] 3 ML PEN SC ×4 (07:55→20:39)
[2017-12-19] MEDS: ASPIRIN 81 MG TAB PO (08:59)
[2017-12-19] MEDS: INSULIN GLARGINE [LANtus] 3 ML PEN SC (09:03)
[2017-12-19] MEDS: OXYCODONE/ACETAMINOPHEN (5/325) TAB PO (12:18)
[2017-12-19] MEDS: FUROSEMIDE 40 MG INJ IV (12:20)
[2017-12-19] MEDS: ONDANSETRON 4 MG INJ IV (15:49)
[2017-12-19] MEDS: ATORVASTATIN 40 MG TAB PO (21:09)
[2017-12-20] MEDS ORDERED: DOCUSATE SODIUM 100 MG CAP PO (02:00)
[2017-12-20] MEDS: POLYETHYLENE GLYCOL 17 GM PACKET PO (02:15)
[2017-12-20] MEDS: OXYCODONE/ACETAMINOPHEN (5/325) TAB PO ×2 (02:16→22:15)
[2017-12-20] MEDS: DOCUSATE SODIUM 100 MG CAP PO ×2 (02:17→20:47)
[2017-12-20 06:42] LABS: ADD MAN DIFF? NO
[2017-12-20 06:45] LABS: BASOPHILS % 0.7 % (0.0-2.0); EOSINOPHILS # 0.4 10^3/ul (0.0-0.5); EOSINOPHILS % 6.6 % (0.0-7.0); HEMATOCRIT 26.8 % (42.0-52.0); HEMOGLOBIN 9.3 g/dl (14.0-18.0); LYMPHOCYTES # 0.9 10^3/ul (0.8-2.9); LYMPHOCYTES % 14.6 % (15.0-51.0); MEAN CORPUSCULAR HEMOGLOBIN 29.8 pg (29.0-33.0); MEAN CORPUSCULAR HGB CONC 34.7 g/dl (32.0-37.0); MEAN CORPUSCULAR VOLUME 85.9 fl (82.0-101.0); MEAN PLATELET VOLUME 12.4 fl (7.4-10.4); MONOCYTE # 0.7 10^3/ul (0.3-0.9); MONOCYTES % 10.7 % (0.0-11.0); NEUTROPHIL # 4.1 10^3/ul (1.6-7.5); NEUTROPHILS % 67.1 % (39.0-77.0); PLATELET COUNT 131 10^3/UL (140-415); RED BLOOD COUNT 3.12 10^6/ul (4.70-6.10); RED CELL DISTRIBUTION WIDTH 13.7 % (11.5-14.5)
[2017-12-20 06:45] LABS: WHITE BLOOD COUNT 6.1 10^3/ul (4.8-10.8)
[2017-12-20 07:16] LABS: ANION GAP 12 (8-16); BLOOD UREA NITROGEN 19 mg/dl (7-20); CALCIUM 8.5 mg/dl (8.4-10.2); CARBON DIOXIDE 34 mmol/L (21-31); CHLORIDE 95 mmol/L (97-110); CREATININE 0.97 mg/dl (0.61-1.24); GLUCOSE 71 mg/dl (70-220); SODIUM 137 mmol/L (135-144)
[2017-12-20] MEDS: INSULIN GLARGINE [LANtus] 3 ML PEN SC ×2 (08:00→13:06)
[2017-12-20] MEDS: INSULIN ASPART [NOVOLOG] 3 ML PEN SC ×4 (08:15→20:47)
[2017-12-20] MEDS: ASPIRIN 81 MG TAB PO (08:36)
[2017-12-20] MEDS: FUROSEMIDE 40 MG INJ IV (08:36)
[2017-12-20 08:51] LABS: ANISOCYTOSIS 2+ (0-0); EOSINOPHILS % (M) 6 % (0-7); GIANT THROMBO% (M) 6 % (0-0); LYMPHOCYTES #M 1.1 10^3/ul (0.8-2.9); LYMPHOCYTES % (M) 19 % (15-51); MICROCYTOSIS 2+ (0-0); MONOCYTE #M 0.4 10^3/ul (0.3-0.9); MONOCYTES % (M) 8 % (0-11); OVALOCYTES 1+ (0-0); POIKILOCYTOSIS 1+ (0-0); POLYCHROMASIA 2+ (0-0); REACTIVE LYMPHOCYTES #M 0.2 10^3/ul (0.0-0.0); REACTIVE LYMPHOCYTES% (M) 4 % (0-0); SEGMENTED NEUTROPHILS (M) % 63 % (39-77); SMUDGE%M 1 % (0-0); SPHEROCYTES 1+ (0-0)
[2017-12-20] MEDS: BISACODYL (EC) 5 MG TAB PO (16:45)
[2017-12-20] MEDS: MAGNESIUM HYDROXIDE 30ML CUP PO (16:45)
[2017-12-20] MEDS: ATORVASTATIN 40 MG TAB PO (20:46)
[2017-12-21] MEDS: INSULIN GLARGINE [LANtus] 3 ML PEN SC ×2 (08:00→12:18)
[2017-12-21] MEDS: INSULIN ASPART [NOVOLOG] 3 ML PEN SC ×4 (08:15→20:37)
[2017-12-21] MEDS: OXYCODONE/ACETAMINOPHEN (5/325) TAB PO (08:19)
[2017-12-21] MEDS: BISACODYL (EC) 5 MG TAB PO (08:19)
[2017-12-21] MEDS: DOCUSATE SODIUM 100 MG CAP PO ×2 (08:19→20:37)
[2017-12-21] MEDS: ASPIRIN 81 MG TAB PO (08:19)
[2017-12-21] MEDS: FUROSEMIDE 40 MG INJ IV (08:20)
[2017-12-21] MEDS: MAGNESIUM HYDROXIDE 30ML CUP PO (08:20)
[2017-12-21] MEDS: POLYETHYLENE GLYCOL 17 GM PACKET PO (08:20)
[2017-12-21] MEDS: ONDANSETRON 4 MG INJ IV (14:31)
[2017-12-21 16:51] LABS: ALANINE AMINOTRANSFERASE 27 IU/L (13-69); ALBUMIN 3.9 g/dl (3.3-4.9); ALBUMIN/GLOBULIN RATIO 1.14; ALKALINE PHOSPHATASE 96 IU/L (42-121); ANION GAP 15 (8-16); ASPARTATE AMINO TRANSFERASE 14 IU/L (15-46); BILIRUBIN,INDIRECT 0.8 mg/dl (0-1.1); BILIRUBIN,TOTAL 0.8 mg/dl (0.2-1.3); BLOOD UREA NITROGEN 23 mg/dl (7-20); CALCIUM 8.5 mg/dl (8.4-10.2); CARBON DIOXIDE 34 mmol/L (21-31); CHLORIDE 93 mmol/L (97-110); CREATININE 1.06 mg/dl (0.61-1.24); GLUCOSE 66 mg/dl (70-220); POTASSIUM 4.2 mmol/L (3.5-5.1); SODIUM 138 mmol/L (135-144); TOTAL PROTEIN 7.3 g/dl (6.1-8.1)
[2017-12-21 16:53] LABS: MAGNESIUM 2.3 mg/dl (1.7-2.5)
[2017-12-21 17:00] LABS: B-TYPE NATRIURETIC PEPTIDE 5920 PG/ML (0-125)
[2017-12-21] MEDS: ATORVASTATIN 40 MG TAB PO (20:37)
[2017-12-22] MEDS: OXYCODONE/ACETAMINOPHEN (5/325) TAB PO ×2 (00:41→20:51)
[2017-12-22] MEDS: INSULIN ASPART [NOVOLOG] 3 ML PEN SC ×4 (07:48→20:46)
[2017-12-22] MEDS: INSULIN GLARGINE [LANtus] 3 ML PEN SC ×2 (07:50→12:04)
[2017-12-22] MEDS: DOCUSATE SODIUM 100 MG CAP PO ×2 (09:00→20:46)
[2017-12-22] MEDS: POLYETHYLENE GLYCOL 17 GM PACKET PO (09:00)
[2017-12-22] MEDS: FUROSEMIDE 40 MG INJ IV (09:00)
[2017-12-22] MEDS: ASPIRIN 81 MG TAB PO (09:24)
[2017-12-22] MEDS ORDERED: SENNA TAB PO (11:00)
[2017-12-22] MEDS ORDERED: NA PHOSPHATE/BIPHOS 133 ML ENEMA PR (11:00)
[2017-12-22] MEDS: ATORVASTATIN 40 MG TAB PO (20:46)
[2017-12-23] MEDS: INSULIN ASPART [NOVOLOG] 3 ML PEN SC ×4 (08:09→21:00)
[2017-12-23] MEDS: OXYCODONE/ACETAMINOPHEN (5/325) TAB PO ×3 (08:09→19:43)
[2017-12-23] MEDS: POLYETHYLENE GLYCOL 17 GM PACKET PO (09:00)
[2017-12-23] MEDS: DOCUSATE SODIUM 100 MG CAP PO ×2 (09:17→21:07)
[2017-12-23] MEDS: ASPIRIN 81 MG TAB PO (09:17)
[2017-12-23] MEDS: FUROSEMIDE 40 MG TAB PO (09:18)
[2017-12-23] MEDS: INSULIN GLARGINE [LANtus] 3 ML PEN SC (11:50)
[2017-12-23] MEDS: ATORVASTATIN 40 MG TAB PO (21:07)
[2017-12-24] MEDS: OXYCODONE/ACETAMINOPHEN (5/325) TAB PO ×3 (00:01→22:19)
[2017-12-24] MEDS: ONDANSETRON 4 MG INJ IV (07:25)
[2017-12-24] MEDS: INSULIN ASPART [NOVOLOG] 3 ML PEN SC ×4 (08:15→20:15)
[2017-12-24] MEDS: INSULIN GLARGINE [LANtus] 3 ML PEN SC (08:22)
[2017-12-24] MEDS: POLYETHYLENE GLYCOL 17 GM PACKET PO (08:22)
[2017-12-24] MEDS: ASPIRIN 81 MG TAB PO (08:22)
[2017-12-24] MEDS: DOCUSATE SODIUM 100 MG CAP PO ×2 (08:23→20:17)
[2017-12-24] MEDS: FUROSEMIDE 40 MG TAB PO (08:35)
[2017-12-24] MEDS: LISINOPRIL 5 MG TAB PO (08:35)
[2017-12-24 14:52] LABS: ADD MAN DIFF? NO
[2017-12-24 14:57] LABS: WHITE BLOOD COUNT 7.4 10^3/ul (4.8-10.8)
[2017-12-24 14:57] LABS: BASOPHILS % 0.5 % (0.0-2.0); EOSINOPHILS # 0.5 10^3/ul (0.0-0.5); EOSINOPHILS % 6.1 % (0.0-7.0); HEMATOCRIT 24.8 % (42.0-52.0); HEMOGLOBIN 8.4 g/dl (14.0-18.0); LYMPHOCYTES # 1.1 10^3/ul (0.8-2.9); LYMPHOCYTES % 14.3 % (15.0-51.0); MEAN CORPUSCULAR HGB CONC 33.9 g/dl (32.0-37.0); MEAN CORPUSCULAR VOLUME 85.5 fl (82.0-101.0); MEAN PLATELET VOLUME 11.5 fl (7.4-10.4); MONOCYTE # 0.7 10^3/ul (0.3-0.9); MONOCYTES % 9.2 % (0.0-11.0); NEUTROPHIL # 5.1 10^3/ul (1.6-7.5); PLATELET COUNT 209 10^3/UL (140-415); RED CELL DISTRIBUTION WIDTH 13.8 % (11.5-14.5)
[2017-12-24 15:14] LABS: ANION GAP 16 (8-16); BLOOD UREA NITROGEN 28 mg/dl (7-20); CALCIUM 8.2 mg/dl (8.4-10.2); CARBON DIOXIDE 29 mmol/L (21-31); CHLORIDE 97 mmol/L (97-110); GLUCOSE 85 mg/dl (70-220); MAGNESIUM 2.1 mg/dl (1.7-2.5); PHOSPHORUS 4.5 mg/dl (2.5-4.9); POTASSIUM 4.6 mmol/L (3.5-5.1); SODIUM 137 mmol/L (135-144)
[2017-12-24] MEDS: LINAGLIPTIN 5 MG TABLET PO (17:51)
[2017-12-24] MEDS: metFORMIN 500 MG TAB PO (17:51)
[2017-12-24] MEDS: ATORVASTATIN 40 MG TAB PO (20:17)
[2017-12-25] MEDS: INSULIN ASPART [NOVOLOG] 3 ML PEN SC ×4 (08:15→21:00)
[2017-12-25] MEDS: ASPIRIN 81 MG TAB PO (08:15)
[2017-12-25] MEDS: DOCUSATE SODIUM 100 MG CAP PO ×2 (08:15→21:33)
[2017-12-25] MEDS: LINAGLIPTIN 5 MG TABLET PO (08:15)
[2017-12-25] MEDS: metFORMIN 500 MG TAB PO ×2 (08:15→17:20)
[2017-12-25] MEDS: LISINOPRIL 5 MG TAB PO (08:16)
[2017-12-25] MEDS: POLYETHYLENE GLYCOL 17 GM PACKET PO (08:17)
[2017-12-25] MEDS: FUROSEMIDE 40 MG TAB PO (08:17)
[2017-12-25 12:48] LABS: HEMOGLOBIN A1C 5.6 % (0-5.9)
[2017-12-25] MEDS: OXYCODONE/ACETAMINOPHEN (5/325) TAB PO ×2 (15:38→21:33)
[2017-12-25] MEDS: ATORVASTATIN 40 MG TAB PO (21:33)
[2017-12-26] MEDS: metFORMIN 500 MG TAB PO ×2 (08:05→17:20)
[2017-12-26] MEDS: INSULIN ASPART [NOVOLOG] 3 ML PEN SC ×4 (08:05→20:09)
[2017-12-26] MEDS: DOCUSATE SODIUM 100 MG CAP PO ×2 (08:05→20:09)
[2017-12-26] MEDS: ASPIRIN 81 MG TAB PO (08:05)
[2017-12-26] MEDS: FUROSEMIDE 40 MG TAB PO (08:06)
[2017-12-26] MEDS: LISINOPRIL 5 MG TAB PO (08:07)
[2017-12-26] MEDS: POLYETHYLENE GLYCOL 17 GM PACKET PO (08:07)
[2017-12-26] MEDS: OXYCODONE/ACETAMINOPHEN (5/325) TAB PO (15:37)
[2017-12-26] MEDS: ATORVASTATIN 40 MG TAB PO (20:09)
[2017-12-27] MEDS: OXYCODONE/ACETAMINOPHEN (5/325) TAB PO ×3 (01:46→19:05)
[2017-12-27] MEDS: INSULIN ASPART [NOVOLOG] 3 ML PEN SC (07:32)
[2017-12-27] MEDS: LISINOPRIL 5 MG TAB PO (09:00)
[2017-12-27] MEDS: FUROSEMIDE 40 MG TAB PO (09:00)
[2017-12-27] MEDS: DOCUSATE SODIUM 100 MG CAP PO ×2 (09:30→20:32)
[2017-12-27] MEDS: POLYETHYLENE GLYCOL 17 GM PACKET PO (09:30)
[2017-12-27] MEDS: metFORMIN 500 MG TAB PO ×2 (09:30→17:20)
[2017-12-27] MEDS: ASPIRIN 81 MG TAB PO (09:30)
[2017-12-27] MEDS: ACCU-CHEK XX ×2 (17:20→20:33)
[2017-12-27] MEDS: ATORVASTATIN 40 MG TAB PO (20:32)
[2017-12-27] MEDS: ONDANSETRON 4 MG INJ IV (21:28)
[2017-12-28] MEDS: ACCU-CHEK XX ×4 (07:56→21:00)
[2017-12-28] MEDS: metFORMIN 500 MG TAB PO ×2 (11:10→17:33)
[2017-12-28] MEDS: DOCUSATE SODIUM 100 MG CAP PO ×2 (11:10→20:52)
[2017-12-28] MEDS: ASPIRIN 81 MG TAB PO (11:10)
[2017-12-28] MEDS: FUROSEMIDE 40 MG TAB PO (11:12)
[2017-12-28] MEDS: OXYCODONE/ACETAMINOPHEN (5/325) TAB PO (11:12)
[2017-12-28] MEDS: POLYETHYLENE GLYCOL 17 GM PACKET PO (11:12)
[2017-12-28] MEDS: LISINOPRIL 5 MG TAB PO (11:13)
[2017-12-28] MEDS: ONDANSETRON 4 MG INJ IV (17:27)
[2017-12-28] MEDS ORDERED: OXYCODONE/ACETAMINOPHEN (5/325) TAB PO (19:30)
[2017-12-28] MEDS: ATORVASTATIN 40 MG TAB PO (20:52)
[2017-12-29] MEDS: ACCU-CHEK XX ×2 (08:00→11:45)
[2017-12-29] MEDS: ASPIRIN 81 MG TAB PO (09:18)
[2017-12-29] MEDS: POLYETHYLENE GLYCOL 17 GM PACKET PO (09:19)
[2017-12-29] MEDS: ACETAMINOPHEN 325 MG TAB PO (09:19)
[2017-12-29] MEDS: DOCUSATE SODIUM 100 MG CAP PO (09:19)
[2017-12-29] MEDS: metFORMIN 500 MG TAB PO (09:19)
[2017-12-29] MEDS: LISINOPRIL 5 MG TAB PO (09:24)
== END 2017-12-29 18:20 | disposition home or self-care (01) | DRG 235 ==
LOC: TEL 17:27 → MS2 12-06 20:38 → TEL 12-09 22:00 → MS2 22:55 → ICU 12-15 15:30 → MS2 12-19 17:06
PROVIDERS: Internal Medicine
PROC: 021 Heart and Great Vessels, Bypass (ICD-10-PCS; principal; 2017-12-15 07:30)
DX: I25.10 Atherosclerotic heart disease of native coronary artery without angina pectoris (principal); I50.23 Acute on chronic systolic (congestive) heart failure; G93.40 Encephalopathy, unspecified; G72.9 Myopathy, unspecified; E11.9 Type 2 diabetes mellitus without complications; E78.5 Hyperlipidemia, unspecified; F15.10 Other stimulant abuse, uncomplicated; I25.2 Old myocardial infarction; I11.0 Hypertensive heart disease with heart failure; F41.9 Anxiety disorder, unspecified; F32.9 Major depressive disorder, single episode, unspecified; I42.9 Cardiomyopathy, unspecified; Z79.82 Long term (current) use of aspirin; R33.9 Retention of urine, unspecified; Z59.0 Homelessness; K59.00 Constipation, unspecified
CPT/HCPCS: 36430; 36592; 36600; 71045; 80048; 80053; 82803; 82962; 83036; 83735; 83880; 84100; 84132; 85014; 85025; 85610; 85730; 86644; 86850; 86900; 86901; 86920; 87081; 88305; 93005; 93312; 93325; 93880; 94002; 94003; 94770; 97110; 97116; 97163; 97530

== ENCOUNTER 2018-11-02 09:05 | Day surgery (SDC) | payer OTHER ==
[2018-11-02] MEDS ORDERED: MIDAZOLAM 1 MG/ML 2 ML INJ (10:12)
[2018-11-02] MEDS ORDERED: FENTAnyl 50 MCG/ML VIAL ×2 (10:12)
[2018-11-02] MEDS ORDERED: LIDOCAINE 4% SOLUTION 50 ML BTL (10:12)
[2018-11-02] MEDS ORDERED: LABETALOL HCL 20MG INJ IV (10:30)
[2018-11-02] MEDS ORDERED: hydrALAzine 20 MG INJ IV (10:30)
[2018-11-02] MEDS ORDERED: ONDANSETRON 4 MG INJ IV (10:30)
== END 2018-11-02 14:04 | disposition home or self-care (01) ==
LOC: GIL 09:05
DX: Z12.11 Encounter for screening for malignant neoplasm of colon (principal); K64.8 Other hemorrhoids; K21.9 Gastro-esophageal reflux disease without esophagitis; I10 Essential (primary) hypertension; E78.5 Hyperlipidemia, unspecified; I25.10 Atherosclerotic heart disease of native coronary artery without angina pectoris; E11.9 Type 2 diabetes mellitus without complications
CPT/HCPCS: 43239; 82962; 88305